=== PATIENT | female | born 1945 | race Caucasian/White ===

== ENCOUNTER → 2016-07-31 | Outpatient (CLI) | payer OTHER ==
[~2016-07-31] MED LIST: GADOBUTROL 10 ML VIAL IVP ONE
[2016-07-31 13:41] LABS: CREATININE 0.8 mg/dL (0.6-1.0); GLOMERULAR FILTRATION RATE > 60
== END ==
LOC: FIMAGING 12:39
PROVIDERS: ATTEND Psychiatry & Neurology Neurology
DX: G40.909 Epilepsy, unspecified, not intractable, without status epilepticus (principal)
CPT/HCPCS: A9585

== ENCOUNTER → 2016-11-09 | Outpatient (CLI) | payer OTHER | LOC: BMCIMAGING 15:15 | PROVIDERS: ATTEND Physician Assistant | DX: Z13.828 Encounter for screening for other musculoskeletal disorder (principal); M16.0 Bilateral primary osteoarthritis of hip; I70.90 Unspecified atherosclerosis ==

== ENCOUNTER → 2017-01-11 | Outpatient (CLI) | payer OTHER | LOC: FIMAGING 13:02 | PROVIDERS: ATTEND Orthopaedic Surgery | DX: Z01.818 Encounter for other preprocedural examination (principal); M16.0 Bilateral primary osteoarthritis of hip; M25.452 Effusion, left hip; M85.80 Other specified disorders of bone density and structure, unspecified site; M51.36 Other intervertebral disc degeneration, lumbar region; M43.16 Spondylolisthesis, lumbar region ==

== ENCOUNTER 2017-02-04 11:32 | Inpatient (IN) | payer OTHER ==
--- NOTE | 2017-02-04 06:21 | PDHPUP ---
History & Physical Update H&P update statement: This history and physical update is based on an assessment of the patient which was completed after admission or registration (within 24 hours), but prior to the surgery/procedure.
--- NOTE | 2017-02-04 06:22 | PDIAF ---
- Diagnosis Diagnosis: right hip djd Code Status: Full Code - Medication Management Discharge Medications: Medications to Continue on Transfer Herbals/Supplements -Info Only 1 ea PO DAILY 12/24/16 [Last Taken Unknown] Ibuprofen [Motrin (*)] 200 - 600 mg PO Q8H PRN 12/24/16 [Last Taken Unknown] Naproxen Sodium [Aleve 220 MG (*)] 220 mg PO Q8H PRN 12/24/16 [Last Taken Unknown] lamoTRIgine [LamICTAL 100 MG (*)] 100 mg PO HS 12/24/16 [Last Taken Unknown] lamoTRIgine [LamICTAL 100 MG (*)] 150 mg PO DAILY AT 6AM 12/24/16 [Last Taken Unknown] levETIRAcetam [Keppra 250 mg (*)] 62.5 mg PO BID 12/24/16 [Last Taken Unknown] Nicorette gum (*) 12/31/16 [Last Taken Unknown] Discharge Medications: Refer to the Discharge Home Medication list for PRN reason. - Orders Services needed: Home Care, Physical Therapy Home Care Face to Face: I certify that this patient was under my care and that I had the required [id number] encounter meeting the encounter requirements on the discharge day. My findings support the fact that the patient is homebound as defined in Home Care Face to Face Continued: CMS Chapter 7 Medicare Benefits Manual 30.1.1 , The condition of the patient is such that there exists a normal inability to leave home and consequently, leaving home would require a considerable and taxing effort. Activity/Weight Bearing Restrictions: wbat. anterior hip precautions. daily dressing changes. no soaking or immersion. aspirin 325 mg po daily. f/u at two weeks. seek attn for increasing pain, cp , sob, leg pain, drainage, other focal complaints - Follow Up Care Current Providers and Referrals: Florinda Reis MD [Primary Care Provider] -
[~2017-02-04 11:32] MED LIST changes: -GADOBUTROL 10 ML VIAL IVP ONE; +ROPIVACAINE 0.2% 80 MG, EPINEPHrine 0.2 MG, KETOROLAC TROMETHAMINE 30 MG, morphINE 10 M... IU ONE; +TRANEXAMIC ACID 900 MG in NS 100 ML IV ONE; +VANCOMYCIN 750 MG in D5W 150 ML IV ONE; +VANCOMYCIN PHARMACY TO DOSE MISC ONE
[2017-02-04] MEDS ORDERED: THROMBIN (BOVINE) 5,000 UNIT VIAL TP ONE (13:43)
[2017-02-04] MEDS ORDERED: ceFAZolin 1 GM/5 ML SYR ONE (13:43)
[2017-02-04] MEDS ORDERED: CALCIUM CHLORIDE 1 GM/10 ML INJ ONE (13:43)
[2017-02-04] MEDS ORDERED: LIDOCAINE 1% 2 ML INJ ONE (14:04)
[2017-02-04] MEDS ORDERED: FAMOTIDINE 20 MG TAB PO ONE (14:12)
[2017-02-04] MEDS ORDERED: ACETAMINOPHEN 325 MG TAB PO ONE (14:12)
[2017-02-04] MEDS ORDERED: LR 1,000 ML IV ONE (14:14)
[2017-02-04] MEDS ORDERED: LIDOCAINE 1% 2 ML INJ ID PRN (14:14)
--- NOTE | 2017-02-04 17:31 | PDANEPAE ---
ANE History of Present Illness 71 year old female presents for right total hip arthroplasty. ANE Past Medical History - Cardiovascular History Hx Hypertension: No Hx Arrhythmias: No Hx Chest Pain: No Hx Coronary Artery / Peripheral Vascular Disease: No Hx CHF / Valvular Disease: No Hx Palpitations: No - Pulmonary History Hx COPD: No Hx Asthma/Reactive Airway Disease: No Hx Recent Upper Respiratory Infection: No Hx Oxygen in Use at Home: No Hx Sleep Apnea: No Sleep Apnea Screening Result - Last Documented: Negative Pulmonary History Comment: uses nicorette gum - Neurologic History Hx Cerebrovascular Accident: No Hx Seizures: Yes Hx Dementia: No Neurologic History Comment: non-specific seizure disorder. last seizure was 2.5 yrs ago - Endocrine History Hx Diabetes: No Hypothyroid: Yes Hyperthyroid: No Obesity: no Endocrine History Comment: hypothyroidism - Renal History Hx Renal Disorders: No - Liver History Hx Hepatic Disorders: No - Neurological & Psychiatric Hx Hx Neurological and Psychiatric Disorders: No - Cancer History Hx Cancer: No - Congenital Disorder History Hx Congenital Disorders: No - GI History GERD: no Hx Gastrointestinal Disorders: Yes Gastrointestinal History Comment: constipation. occ black stools most likely d/ t ibuprofen and naproxen use q4 hours - Other Health History Other Health History: wears reading glasses - Chronic Pain History Chronic Pain: Yes (right hip and neck pain) - Surgical History Prior Surgeries: appy @ 12 yo. @ 41 yo. lysis of adhesions @ 42 yo. breast reduction ANE Review of Systems Review of systems is: negative Review of Systems: - Exercise capacity Exercise capacity: >=4 METS METS (RN): 4 METS ANE Patient History - Allergies Allergies/Adverse Reactions: droperidol [From Inapsine] Allergy (Severe, Verified 12/31/16 11:50) Anaphylaxis Tetanus Vaccines and Toxoid Allergy (Severe, Verified 12/31/16 11:50) SEIZURE Penicillins Allergy (Verified 12/31/16 11:54) Swelling/neck,face,throat bee stings Allergy (Uncoded 12/31/16 11:54) Swelling/neck,face,throat - Home Medications Home medications: home medication list seen and reviewed Home Medications: Herbals/Supplements -Info Only 1 ea PO DAILY 12/24/16 [Last Taken 02/04/17] Ibuprofen [Motrin (*)] 200 - 600 mg PO Q8H PRN 12/24/16 [Last Taken 01/28/17] Naproxen Sodium [Aleve 220 MG (*)] 220 mg PO Q8H PRN 12/24/16 [Last Taken ] lamoTRIgine [LamICTAL 100 MG (*)] 100 mg PO HS 12/24/16 [Last Taken 02/03/17] lamoTRIgine [LamICTAL 100 MG (*)] 150 mg PO DAILY AT 6AM 12/24/16 [Last Taken ] levETIRAcetam [Keppra 250 mg (*)] 62.5 mg PO BID 12/24/16 [Last Taken 02/04/17] Nicotine Polacrilex [Nicorette gum (*)] 2 mg BC PRN PRN 12/31/16 [Last Taken 08/15] - NPO status NPO Status: no food or drink >8 hours NPO Since - Liquids (Date): 02/04/17 NPO Since - Liquids (Time): 00:00 NPO Since - Solids (Date): 02/03/17 NPO Since - Solids (Time): 22:00 - Anes Hx Anes Hx: slow to awaken from anesthesia - Smoking Hx Smoking Status: Former smoker Marijuana use: No - Alcohol Use Alcohol Use: None - Family Anes Hx Family Anes Hx: neg - N/A Family Hx Anesthesia Complications: none ANE Labs/Vital Signs - Vital Signs Vital Signs: reviewed preoperatively; see RN documention for details Blood Pressure: 136/76 Heart Rate: 78 Respiratory Rate: 16 O2 Sat (%): 91 Height: 157.48 cm Weight: 45.359 kg ANE Physical Exam - Airway Neck exam: FROM Mallampati Score: Class 2 Mouth exam: normal dental/mouth exam - Pulmonary Pulmonary: no respiratory distress - Cardiovascular Cardiovascular: regular rate and rhythym - ASA Status ASA Status: III ANE Anesthesia Plan Anesthesia Plan: general endotracheal anesthesia (General anesthesia as back-up plan.), MAC, spinal Total IV Anesthesia: No
[2017-02-04] MEDS ORDERED: PROPOFOL/EMULSION 500 MG/50 ML BOTTLE IV ONE (17:34)
[2017-02-04] MEDS ORDERED: BUPIVACAINE/DEXTROSE 7.5MG/ML 2 ML SPINAL AMP SP ONE (17:39)
[2017-02-04] MEDS ORDERED: ONDANSETRON DISINTEGRATING 4 MG TAB PO PRN (18:05)
[2017-02-04] MEDS ORDERED: DIPHENOXYLATE/ATROPINE LOMOTIL 1 TAB PO PRN (18:05)
[2017-02-04] MEDS ORDERED: oxyCODONE IR 5 MG TAB PO PRN (18:05)
[2017-02-04] MEDS ORDERED: METOCLOPRAMIDE 10 MG/2 ML VIAL IVP PRN (18:05)
[2017-02-04] MEDS ORDERED: TEMAZEPAM 15 MG CAP PO PRN (18:05)
[2017-02-04] MEDS ORDERED: PROMETHAZINE HCL 25 MG/ML INJ IVP PRN (18:05)
[2017-02-04] MEDS ORDERED: ONDANSETRON 4 MG/2 ML VIAL IVP PRN ×2 (18:05→19:28)
[2017-02-04] MEDS ORDERED: LACTULOSE 20 GM/30 ML UDCUP PO PRN (18:05)
[2017-02-04] MEDS ORDERED: MAGNESIUM HYDROXIDE 30 ML UDCUP PO PRN (18:05)
[2017-02-04] MEDS ORDERED: DIAZEPAM 5 MG TAB PO PRN (18:05)
[2017-02-04] MEDS ORDERED: diphenhydrAMINE 25 MG CAP PO PRN (18:05)
[2017-02-04] MEDS ORDERED: PROMETHAZINE HCL 25 MG SUPPR PR PRN (18:05)
[2017-02-04] MEDS ORDERED: BISACODYL 10 MG SUPP PR PRN (18:05)
[2017-02-04] MEDS ORDERED: POLYETHYLENE GLYCOL 3350 17 GM PKT PO PRN (18:05)
[2017-02-04] MEDS ORDERED: NICOTINE POLACRILEX 2 MG BC PRN (18:06)
[2017-02-04] MEDS ORDERED: TRANEXAMIC ACID 650 MG TAB PO SCH (18:15)
[2017-02-04] MEDS ORDERED: NICOTINE POLACRILEX 2 MG GUM B PRN (18:17)
[2017-02-04] MEDS ORDERED: PHENYLEPHRINE HCL 100 MCG/ML SYR ONE (18:18)
[2017-02-04] MEDS ORDERED: DEXAMETHASONE 4 MG/ML VIAL ONE (18:38)
[2017-02-04] MEDS ORDERED: ONDANSETRON 4 MG/2 ML VIAL ONE (18:38)
[2017-02-04] MEDS ORDERED: NALOXONE HCL 0.4 MG/ML INJ IVP PRN (19:28)
[2017-02-04] MEDS ORDERED: OXYCODONE/APAP 5/325 TAB PO PRN (19:28)
[2017-02-04] MEDS ORDERED: LR 500 ML IV PRN (19:28)
[2017-02-04] MEDS ORDERED: fentaNYL 100 MCG/2 ML INJ ONE (19:56)
[2017-02-04] MEDS: fentaNYL 100 MCG/2 ML INJ IVP PRN ×2 (19:59→20:06)
--- NOTE | 2017-02-04 20:06 | POSTANESTH ---
Post Anesthetic Evaluation Cardiovascular Status: Normal, Stable, Similar to Pre-Op Cond Respiratory Status: Normal, Stable, Similar to Pre-op Cond. Level of Consciousness/Mental Status: Can Participate in Eval, Alert and Oriented Pain Control: Adequate, Prn Tx Ordered Nausea/Vomiting Control: Adequate, Prn Tx Ordered Complications Possibly Related to Anesthesia: None Noted
[2017-02-04] MEDS ORDERED: HYDROmorphONE/DILAUDID 1 MG/ML INJ ONE (20:11)
[2017-02-04] MEDS: HYDROmorphONE/DILAUDID 1 MG/ML INJ IVP PRN ×3 (20:12→20:41)
[2017-02-04] MEDS ORDERED: OXYCODONE/APAP 5/325 TAB ONE (20:39)
[2017-02-04] MEDS ORDERED: DIAZEPAM 5 MG TAB ONE (20:39)
[2017-02-04] MEDS ORDERED: lamoTRIgine 100 MG TAB PO SCH (21:00)
[2017-02-04 21:50] VITALS: RESP 16
[2017-02-04] MEDS: ASPIRIN 325 MG TAB PO SCH (21:56)
[2017-02-04] MEDS: FAMOTIDINE 20 MG TAB PO SCH (21:57)
[2017-02-04] MEDS: levETIRAcetam 250 MG TAB PO SCH (21:58)
[2017-02-04] MEDS: SENNOSIDES/DOCUSATE SODIUM TAB PO SCH (21:58)
[2017-02-04] MEDS: LR 1,000 ML IV SCH (21:59)
[2017-02-05] MEDS: ACETAMINOPHEN 325 MG TAB PO SCH ×3 (00:04→11:48)
[2017-02-05] MEDS: TRANEXAMIC ACID 650 MG TAB PO SCH ×2 (02:04→11:00)
[2017-02-05 04:22] VITALS: TEMP 97.9
[2017-02-05 05:25] LABS: HEMOGLOBIN 9.3 g/dL (12.6-16.3)
[2017-02-05] MEDS: LR 1,000 ML IV SCH (05:27)
[2017-02-05] MEDS ORDERED: lamoTRIgine 100 MG TAB PO SCH (06:00)
--- NOTE | 2017-02-05 07:31 | PDIAF ---
- Diagnosis Diagnosis: right hip djd Code Status: Full Code - Medication Management Discharge Medications: Medications to Continue on Transfer Herbals/Supplements -Info Only 1 ea PO DAILY 12/24/16 [Last Taken 02/04/17] Ibuprofen [Motrin (*)] 200 - 600 mg PO Q8H PRN 12/24/16 [Last Taken 01/28/17] Naproxen Sodium [Aleve 220 MG (*)] 220 mg PO Q8H PRN 12/24/16 [Last Taken ] lamoTRIgine [LamICTAL 100 MG (*)] 100 mg PO HS 12/24/16 [Last Taken 02/03/17] lamoTRIgine [LamICTAL 100 MG (*)] 150 mg PO DAILY AT 6AM 12/24/16 [Last Taken ] levETIRAcetam [Keppra 250 mg (*)] 62.5 mg PO BID 12/24/16 [Last Taken 02/04/17] Nicotine Polacrilex [Nicorette gum (*)] 2 mg BC PRN PRN 12/31/16 [Last Taken 08/15] Aspirin [Aspirin 325 mg (*)] 325 mg PO DAILY tab 02/05/17 [Last Taken Unknown] oxyCODONE IR [Oxycodone Ir (*)] 5 - 10 mg PO Q3HRS PRN #70 tab 02/05/17 [Last Taken Unknown] Discharge Medications: Refer to the Discharge Home Medication list for PRN reason. - Orders Services needed: Home Care, Physical Therapy Home Care Face to Face: I certify that this patient was under my care and that I had the required [id number] encounter meeting the encounter requirements on the discharge day. My findings support the fact that the patient is homebound as defined in Home Care Face to Face Continued: CMS Chapter 7 Medicare Benefits Manual 30.1.1 , The condition of the patient is such that there exists a normal inability to leave home and consequently, leaving home would require a considerable and taxing effort. Diet Recommendation: no restrictions on diet Diet Texture: Regular Texture Diet Activity/Weight Bearing Restrictions: wbat. anterior hip precautions. daily dressing changes. no soaking or immersion. aspirin 325 mg po daily. f/u at two weeks. seek attn for increasing pain, cp , sob, leg pain, drainage, other focal complaints - Follow Up Care Current Providers and Referrals: Florinda Reis MD [Primary Care Provider] -
--- NOTE | 2017-02-05 07:47 | GDS ---
[f rep st] DISCHARGE SUMMARY ADMIT DIAGNOSIS: Right hip degenerative joint disease. DISCHARGE DIAGNOSIS: Right hip degenerative joint disease. PROCEDURE: Right total hip arthroplasty-anterior/MAKOplasty. OPERATIVE INDICATIONS: The patient is a 71-year-old woman with end-stage arthritis to her right hip. Clinical and radiographic features are consistent with this. She has failed all attempts at conser vative management. I have, therefore, recommended total hip replacement. She understood the risks, benefits, alternatives, and wished to proceed. Written consent was signed and placed in patient's art. HOSPITAL COURSE: The patient was admitted to the hospital floor after uncomplicated total hip arthro plasty. She tolerated the procedure well. Postoperative course was uneventful. At the time of discharge, she is tolerating an oral diet. Her pain is well controlled on oral medicines. She is voiding without difficulty. Her dressing is clean , dry, and intact. Hematocrit on postoperative day #1, is 28.0. She has no calf swelling or tendern ess. Negative Homans bilaterally. X-rays demonstrate anatomic alignment. DISCHARGE ACTIVITY: She is weightbearing as tolerated. Anterior hip precautions. Daily dressing ch anges. No soaking or immersion. May shower without a bandage. Seek attention for increasing rednes s, swelling, drainage. DISCHARGE MEDICATIONS: Oxycodone 5 mg 1-2 every 4 hours p.r.n. pain, aspirin 325 mg p.o. daily for 6 weeks. FOLLOW UP: Follow up in 2 weeks. She will go home with home therapy. /[id number]/MODL
[2017-02-05] MEDS: ASPIRIN 325 MG TAB PO SCH (08:47)
[2017-02-05] MEDS: SENNOSIDES/DOCUSATE SODIUM TAB PO SCH (08:47)
[2017-02-05] MEDS: levETIRAcetam 250 MG TAB PO SCH (08:47)
[2017-02-05] MEDS: FAMOTIDINE 20 MG TAB PO SCH (08:48)
--- NOTE | 2017-02-05 10:54 | ASMTCMCOM ---
CM Note CM Note Notes: Patient is POD #[address] replacement [address] Dr Cortez. I spoke with she and her , they'd like home PT/OT. [facility] to see for homecare, Teodora @ [facility] notified. Patient's will transport home. Date Signed: 02/05/2017 10:54 AM Electronically Signed By:Candy Dean RN
[2017-02-05 11:55] VITALS: O2SAT 98
[2017-02-05 13:14] VITALS: BP 91/54; PULSE 80
--- NOTE | 2017-02-05 14:22 | ASDISCHSUM ---
Discharge Information Plan Status:Home with Home Health Medically Cleared to Leave: Discharge Date:02/05/2017 12:40 PM D/C Disposition:Home Health Service ADT D/C Disposition:Home, Routine, Self-Care Projected Discharge Date:02/05/2017 12:40 PM Transportation at D/C:Family Discharge Delay Reason: Follow-Up Date:02/05/2017 12:40 PM Discharge Slot: Final Diagnosis: Placement Information Patient Contact Information Contact Name:SHIRIN Relationship: Address:[address] City:[place] Alternate Phone: State/Zip Code:[place] [address] Email: Financial Information Financial Class: Primary Plan Desc:MEDICARE INPATIENT Primary Plan Number:[id number] Secondary Plan Desc:[employer] Secondary Plan Number:[id number] Assessment Information BC CM Progress Note CM Note CM Note Notes: Patient is POD #[address] hip replacement with Dr Cortez. I spoke with she and her , they'd like home PT/OT. [facility] to see for homecare, Teodora @ [facility] notified. Patient's will transport home. Date Signed: 02/05/2017 10:54 AM Electronically Signed By:Candy Dean RN Intervention Information
--- NOTE | 2017-02-09 09:02 | GOP ---
[f rep st] OPERATIVE REPORT DATE OF OPERATION: 02/04/2017 SURGEON: David Cortez MD LIFESTYLE DIRECTOR: Iván Bowie, SUPERVISOR PU[employer]ING, [facility], who was medically necessary through the entire case. PREOPERATIVE DIAGNOSIS: Right hip degenerative joint disease. POSTOPERATIVE DIAGNOSIS: Right hip degenerative joint disease. PROCEDURE PERFORMED: Right total hip arthroplasty-anterior/MAKOplasty. FINDINGS: SPECIMENS: To Pathology: Femoral head. INDICATIONS: The patient is a 71-year-old woman with end-stage arthritis to the right hip. Clinical and radiographic features are consistent with this. She has failed all attempts at conservative man agement. I have, therefore, recommended total hip replacement. She understood the risks, benefits, alternatives, and wished to proceed. Written consent was signed and placed in patient's chart. DESCRIPTION OF PROCEDURE: Patient was identified in the preanesthesia area. The right hip clearly d emarcated as the operative site with indelible marker. She was given 1 g vancomycin IV enroute to th e operative suite. In the OR general endotracheal anesthesia was administered. Attention was turned to the pelvis and both lower extremities. She was positioned in the supine position. The pelvis an d both lower extremities were sterilely prepped and draped in the usual fashion. Appropriate time-ou t procedure was carried out. Attention was first turned to the left hemipelvis, 2 cm incision was ma de. Three pins were placed into the iliac crest, and the pelvic reference array affixed. Attention was then turned to the right hip. An anterior approach was made. This was carried sharply through t he skin and subcutaneous tissue, directly to the fascia of the tensor fascia michelle. The fascia was th en opened in the origin of its fibers and the tensor retracted in a lateral direction. The underlyin g vascular structures were identified and ligated, cauterized and transected. The rectus was elevate d off the anterior capsule. A Hohmann retractor placed over the medial femoral neck and superior fem oral neck. A T was made in the capsule and the retractors were placed in an intracapsular position. The pelvic reference array check point was then placed and a bony wedge withdrawn from the femoral n jay. The head was removed. The remnants of the acetabular labrum were sharply excised. The bony la ndmarks were then entered into the computer. Using the MAKOplasty protocol, a size 48 reamer was marylou joe and an opening angle of 40 degrees and anteversion of 17 degrees. This was confirmed to be fully seated. A 48 mm acetabular shell was then impacted, confirmed to be fully seated. Two 6.5 mm cance llous bone screws were utilized and a 0 degree X3 liner was then placed and confirmed to be fully sea priti. Attention was then turned to the femur. This was delivered through the wound with use of soft tissue releases and retractors. The proximal canal of the femur was opened, serially broached to a s ize 3 broach and a trial reduction with a size 3 stem was carried out. Ultimately, a size 32 mm -4 m m neck length head was selected. The trial stem was withdrawn, 127 degree neck angle hip stem was th en impacted, confirmed to be fully seated. Additional trialing was carried out. Ultimately, a 32 mm -4 mm Biolox head was then impacted across the trunnion. The hip was then reduced. Leg lengths wer e restored. Stability profile was equal with no instability with external rotation and extension of the limb. The wound was copiously irrigated, closed in layers using 0 Vicryl, 2-0 Monocryl, 0 Quill suture. The deep tissues were instilled with a joint cocktail of ropivacaine, morphine, Toradol, and epinephrine and the deep structures instilled with a platelet-rich plasma. The skin was stapled and a sterile dressing was applied. The patient was awakened, taken to the recovery room in good, stabl e condition. TOTAL TOURNIQUET TIME: None. COMPLICATIONS: None. IMPLANTS: Miguel Tritanium acetabular shell, size 48 mm. Two 6.5 mm cancellous bone screws. Triden t X3 0-degree polyethylene insert, 32 mm. Biolox head 32 mm -4 mm neck length. Accolade 227-degree neck angle hip stem, size 3. DISPOSITION: To the recovery room then the floor. She is weightbearing, range of motion as tolerate d. Anterior hip precautions. /[id number]/MODL
== END 2017-02-05 12:40 | disposition home or self-care (01) | DRG 470 ==
LOC: F3N 13:40
PROVIDERS: ADMIT Orthopaedic Surgery; ATTEND Orthopaedic Surgery
DX: M16.11 Unilateral primary osteoarthritis, right hip (principal); E78.00 Pure hypercholesterolemia, unspecified; E03.9 Hypothyroidism, unspecified; E55.9 Vitamin D deficiency, unspecified; R56.9 Unspecified convulsions; Z87.891 Personal history of nicotine dependence
CPT/HCPCS: 97116-GP; 97161-GP; 97165-GO; 97535-GO; C1713; G8978-GP-CI; G8979-GP-CI; G8980-GP-CI; G8987-GO-CI; G8988-GO-CI; G8989-GO-CI; J0171; J1100; J1170; J1885; J2370; J2405; J2704; J2795; J3010; J3370

== ENCOUNTER → 2017-03-19 | Outpatient (CLI) | payer OTHER | LOC: BMCIMAGING 08:52 | PROVIDERS: ATTEND Physician Assistant | DX: Z47.1 Aftercare following joint replacement surgery (principal); Z96.641 Presence of right artificial hip joint ==

== ENCOUNTER 2017-12-16 12:29 | Emergency (ER) | payer OTHER ==
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
--- NOTE | 2017-12-16 12:56 | CPEKG ---
Test Reason : OPEN Blood Pressure : / mmHG Vent. Rate : 106 BPM Atrial Rate : 106 BPM P-R Int : 201 ms QRS Dur : 091 ms QT Int : 357 ms P-R-T Axes : 050 -61 063 degrees QTc Int : 475 ms Sinus tachycardia Left anterior fascicular block Abnormal R-wave progression, early transition Left ventricular hypertrophy Confirmed by Khadar Parmar ([id number]) on 12/16/2017 12:56:12 PM Referred By: Confirmed By:Khadar Parmar
[2017-12-16 14:07] VITALS: BP 109/71
== END 2017-12-16 14:06 | disposition home or self-care (01) ==
LOC: EDUNIT#
DX: G40.909 Epilepsy, unspecified, not intractable, without status epilepticus (principal); Z87.891 Personal history of nicotine dependence
CPT/HCPCS: 82435-PO; 82565-PO; 82947-PO; 84132-PO; 84295-PO; 84520-PO; 85014-PO

== ENCOUNTER → 2018-06-17 | Outpatient (CLI) | payer OTHER | LOC: FIMAGING 12:49 | PROVIDERS: ATTEND Internal Medicine | DX: M85.89 Other specified disorders of bone density and structure, multiple sites (principal); Z78.0 Asymptomatic menopausal state; Z12.31 Encounter for screening mammogram for malignant neoplasm of breast; Z80.3 Family history of malignant neoplasm of breast ==